=== PATIENT | female | born 1960 | race Caucasian/White ===

== ENCOUNTER 2016-04-23 19:56 | Emergency (ER) | payer OTHER ==
--- NOTE | ~2016-04-23 | CR63 ---
[facility] A Service of [facility] & [facility] RADIOLOGY TEXT RESULTS PATIENT: MIKAYLA MCCLAIN LOCATION: [facility] : 62 UNIT #: [id number] AGE: [address]: Isak Benton MD SEX: F ORDER DR: [id number] [facility] [address] [place], [place] [address] [id number] E MR#: [id number] Acc #: [id number] NAME: MIKAYLA MCCLAIN : 1960 SEX: F STUDY DATE/TIME: 04/23/2016 19:42 UNIT: [facility] ROOM: STUDY DESCRIPTION: CR Chest 2 View Attending Physician: Isak Benton M.D. Ordering Physician: Ed Doctor [id number] [facility] Primary Care Physician: Shayan Castrejon M.D. MEDICAL IMAGING REPORT This report is preliminary unless electronic signature is present EXAM PA lateral chest, 04/23/2016 at 19:42 HISTORY 56-year-old female with shortness breath, cough and congestion since . Smoking history. COMPARISON PA lateral chest radiograph, 05/07/2010 FINDINGS No acute airspace disease. Heart size is within normal limits. No pleural effusion or pneumothorax or acute osseous abnormalities are identified. IMPRESSION No acute cardiopulmonary findings. Dictated by... Cynthia Mohan M.D. THIS IS AN ELECTRONICALLY VERIFIED REPORT Cynthia Mohan M.D. at 04/24/2016 7:01 PM MARJORIE/jennifer TD: 04/24/2016 12:00 JOB #: [id number] MEDICAL IMAGING REPORT COPY
[~2016-04-23 19:56] MED LIST: AFRIN NASAL SPR15 ML; AMOXICILLIN875 MG PO; AUGMENTIN PO; BACTRIM DS TABL1 TA1 PO; BACTRIM DS TABL1 TA2; CIPRO PO; CIPRO250 MG PO; DIFLUCAN PO; DIFLUCAN100 MG PO; KEFLEX500 MG PO; KLONOPIN PO; KLONOPIN0.5 MG PO; MENEST0.625 MG PO; NAPROSYN500 MG PO; PYRIDIUM PO; PYRIDIUM100 MG PO; ROBAXIN500 MG PO; TOPAMAX PO; VIBRAMYCIN100 M1 PO; VOLTAREN50 MG PO; ZOFRAN ODT4 MG PO; ZPAK; ZYRTEC5 M4 PO
[2016-06-11] MEDS ORDERED: KLONOPIN (16:25)
== END 2016-04-23 20:50 | disposition home or self-care (01) ==
LOC: CFTX 19:56
DX: J20.9 Acute bronchitis, unspecified (principal); J06.9 Acute upper respiratory infection, unspecified
CPT/HCPCS: 71020; 94640; 99283

== ENCOUNTER 2016-06-11 16:54 | Emergency (ER) | payer OTHER ==
[~2016-06-11 16:54] MED LIST changes: +KLONOPIN
[2016-06-11 16:56] LABS: URINE SOURCE CLEAN CATCH
[2016-06-11 16:58] LABS: URINE APPEARANCE CLEAR; URINE BILIRUBIN NEG (NEG); URINE BLOOD 1+ (NEG); URINE COLOR YELLOW; URINE GLUCOSE NEG (NORM); URINE KETONE NEG (NEG); URINE LEUKOCYTE ESTERASE NEG (NEG); URINE NITRATE NEG (NEG); URINE PROTEIN NEG (NEG); URINE UROBILINOGEN 0.2 MG/DL (NORM)
[2016-06-11 17:11] LABS: MICRO INDICATED? YES
[2016-06-11 17:13] LABS: CULTURE INDICATED? YES; URINE BACTERIA 2+ (NEG); URINE SQUAMOUS EPITHELIAL CELL MODERATE /[HPF]; URINE WBC 0-2 /[HPF] (0-5)
== END 2016-06-11 17:22 | disposition home or self-care (01) ==
LOC: SED 16:54
PROVIDERS: Physician Assistant Medical
DX: R30.0 Dysuria (principal); F41.9 Anxiety disorder, unspecified; F17.210 Nicotine dependence, cigarettes, uncomplicated
CPT/HCPCS: 81003; 87086; 99282

== ENCOUNTER 2016-09-05 17:55 | Emergency (ER) | payer OTHER ==
[~2016-09-05] VITALS: Ht 165.1 cm; Wt 75.3 kg
[2016-09-05 18:28] LABS: URINE SOURCE CLEAN CATCH
[2016-09-05 18:31] LABS: URINE APPEARANCE CLEAR; URINE BILIRUBIN NEG (NEG); URINE BLOOD TRACE-INTACT (NEG); URINE COLOR YELLOW; URINE GLUCOSE NEG (NORM); URINE KETONE NEG (NEG); URINE LEUKOCYTE ESTERASE NEG (NEG); URINE NITRATE NEG (NEG); URINE PH 6.5 (5-8); URINE PROTEIN NEG (NEG); URINE SPECIFIC GRAVITY <=1.005 (1.003-1.035); URINE UROBILINOGEN 0.2 MG/DL (NORM)
[2016-09-05 18:33] LABS: MICRO INDICATED? YES
[2016-09-05 18:36] LABS: URINE BACTERIA NEG (NEG); URINE SQUAMOUS EPITHELIAL CELL FEW /[HPF]; URINE WBC 0-2 /[HPF] (0-5)
== END 2016-09-05 19:16 | disposition home or self-care (01) ==
LOC: SED 17:55
PROVIDERS: Physician Assistant
DX: R30.0 Dysuria (principal); M54.5 Low back pain; F41.9 Anxiety disorder, unspecified; Z98.51 Tubal ligation status; F17.200 Nicotine dependence, unspecified, uncomplicated
CPT/HCPCS: 81003; 99283

== ENCOUNTER 2016-10-13 17:31 | Emergency (ER) | payer OTHER ==
[2016-10-13 18:19] LABS: URINE APPEARANCE CLEAR; URINE BILIRUBIN NEG (NEG); URINE BLOOD 2+ (NEG); URINE COLOR YELLOW; URINE GLUCOSE NEG (NORM); URINE KETONE NEG (NEG); URINE LEUKOCYTE ESTERASE NEG (NEG); URINE NITRATE NEG (NEG); URINE PROTEIN NEG (NEG); URINE SOURCE CLEAN CATCH; URINE UROBILINOGEN 0.2 MG/DL (NORM)
[2016-10-13 18:26] LABS: MICRO INDICATED? YES
[2016-10-13 18:32] LABS: CULTURE INDICATED? NO; URINE BACTERIA NEG (NEG); URINE SQUAMOUS EPITHELIAL CELL MODERATE /[HPF]; URINE WBC NEG /[HPF] (0-5)
== END 2016-10-13 19:35 | disposition home or self-care (01) ==
LOC: SED 17:31
PROVIDERS: Physician Assistant
DX: S39.012A Strain of muscle, fascia and tendon of lower back, initial encounter (principal); M54.40 Lumbago with sciatica, unspecified side; F41.9 Anxiety disorder, unspecified; Z98.51 Tubal ligation status; F17.200 Nicotine dependence, unspecified, uncomplicated; X58.XXXA Exposure to other specified factors, initial encounter
CPT/HCPCS: 81003; 99283